=== PATIENT | female | born 2000 | race Caucasian/White ===

== ENCOUNTER 2025-02-26 17:17 | Emergency (ER) | payer BC, SELFPAY ==
--- NOTE | 2025-02-26 17:18 | ED_ITS ---
HPI - URI/Sore Throat General Chief Complaint: Upper Respiratory Infection Stated Complaint: Cold Like Time Seen by Provider: 02/26/25 17:18 Source: patient Mode of arrival: ambulatory Limitations: no limitations History of Present Illness HPI Narrative: Patient is a 24 year old female that presents with congestion, cough and feeling warm for 2 days. patient reports temperature of 99.4. Denies any ear pain, n/v/d . Has taken a dose of sudafed and mucinex. Related Data Home Medications ?Medication ?Instructions ?Recorded ?Confirmed ?Last Taken ?Type escitalopram oxalate 10 mg tablet mg 02/26/25 Unknown History norgestimate-ethinyl estradiol tablet 02/26/25 Unknown History 0.18mg/0.215mg/0.25mg-0.035mg(28)tablet (Tri-Sprintec (28)) Allergies Allergy/AdvReac Type Severity Reaction Status Date / Time No Known Allergies Allergy Verified 02/26/25 17:31 Review of Systems Review of Systems: All systems reviewed & are unremarkable except as noted in HPI and below Constitutional: Constitutional: Denies chills, Denies fatigue, Denies fever(s), Denies headache(s), Denies malaise and Denies weakness Eyes: Eyes: Denies blurry vision, Denies itchy eyes and Denies loss of vision ENT: Denies otalgia, Denies headache(s), Reports nasal congestion, Denies sinus pain and Reports sore throat Cardiovascular: Cardiovascular: Denies chest pain, Denies irregular heart rhythm and Denies dyspnea Respiratory: Respiratory: Denies cough and Denies dyspnea Gastrointestinal: Gastrointestinal: Denies abdominal pain, Denies diarrhea, D enies nausea and Denies vomiting Musculoskeletal: Musculoskeletal: Denies back pain, Denies myalgias and Denies arthralgias Integumentary/Breasts: Skin/Breast: Denies pruritus and Denies rash Neurologic: Denies headache(s), Denies loss of vision and Denies weakness Psychiatric: Psychiatric: Reports no additional psychiatric complaints Endocrine: Endocrine: Denies fatigue Allergic/Immunologic: Allergic/Immunologic: Denies itchy eyes PMFSH Comments At time of signature, agree with nursing past medical, surgical, social and family history. There is no relevant family history pertinent to the presenting complaint. Exam Const: General: cooperative, healthy appearing, comfortable, no acute distress and well nourished Nutritional Appearance: well nourished Orientation/consciousness: patient oriented x3 Limitations: no limitations HENMT: Head: normal to inspection, normocephalic and atraumatic Ears: hearing grossly normal bilaterally, external ears normal, TM's normal bilaterally, EAC's normal and no periauricular adenopathy Face/Nose/Sinus: Normal external nose present, Abnormal mucous membranes and turbinates present erythematous bilateral and diffuse, normal facial exam, sinuses nontender and face symmetric Face and sinus: normal facial exam, sinuses nontender and face symmetric Mouth: Yes Normal oral and palatal mucosa present, Yes lip normal, Yes tongue normal, Yes Normal salivary glands and ducts present, Yes oropharynx normal and Yes moist mucous membranes Teeth and gingiva: dentition normal Throat: posterior oropharynx normal, tonsils normal, uvula midline and postnasal drainage Eyes: General: appearance normal, both eyes and all related structures Alignment and Position: alignment normal and position normal Periorbital: periorbital findings normal Eyelids: eyelids normal Pupils: Equal, round and reactive pupils present Neck: Neck: normal visual inspection, full ROM, no lymphadenopathy and supple Chest: Chest palpation & inspection: normal inspection of the chest and normal palpation of entire chest wall Resp: Effort & Inspection: normal respiratory effort and able to speak in complete sentences Auscultation: clear to auscultation bilaterally, no crackles, no rales, no rhonchi and no wheezes Cardio: Rate: tachycardic Rhythm: regular rhythm Heart sounds: S1 normal heart sound present and S2 normal heart sound present GI: Inspection: normal to inspection Skin: General skin exam: normal color and no rashes or lesions noted Neuro: General: patient oriented x3 and moves all extremities Cranial nerves: Yes Equal, round and reactive pupils present Speech: normal speech Gait exam (Neuro): Normal gait present Extrem: General: normal to inspection, full ROM and no edema Psych: Appearance: grossly normal and well kempt Mental Status: mental status grossly normal Speech and movement: Normal speech and movement present Affect: normal affect Attitude: cooperative Thought process: Normal thought process present Course Course Emergency Course: Discharge instructions reviewed with patient, as well as provided in writing per nursing staff. The instructions also include specific and strict return/GO TO THE ER as well as f/u information. All questions have been answered, and the patient deny any further questions with discharge and discharge plan. Portions of this record may have been created with voice recognition software Level of Care: Express Care Visit Vital Signs Vital signs: Vital Signs Temperature 36.5 C 02/26/25 17:27 Pulse Rate 108 H 02/26/25 17:27 Respiratory Rate 16 02/26/25 17:27 Blood Pressure 129/71 02/26/25 17:27 Pulse Oximetry 99 02/26/25 17:27 Oxygen Delivery Room Air 02/26/25 17:27 Temperature 36.5 C 02/26/25 17:27 Pulse Rate 108 H 02/26/25 17:27 Respiratory Rate 16 02/26/25 17:27 Blood Pressure 129/71 02/26/25 17:27 Pulse Oximetry 99 02/26/25 17:27 Oxygen Delivery Room Air 02/26/25 17:27 Reviewed MDM - URI/Sore Throat MDM Narrative Medical decision making narrative: Pt well hydrated appearing, in no respiratory distress, hemodynamically stable. Recommend supportive care. The patient is stable at time of discharge the clinical impression was discussed and the patient was given the opportunity to ask questions, which were addressed as completely as possible given the information available at present. Anticipatory guidance and return to care precautions were discussed and the importance of primary care follow-up was stressed and encouraged. The patient voiced understanding of the plan, indications to return, and the need for follow-up. Exam findings show no acute concerns or changes Patient is appropriate for outpatient treatment and follow-up. Differential diagnosis considered: Mejia virus, strep pharyngitis, allergic rhinitis, upper respiratory tract infection, sinusitis, rhinosinusitis, nasopharyngitis. viral pharyngitis, otitis media, otitis externa, otitis effusion, foreign body, cerumen impaction, viral syndrome, and influenza.? Lab Data Attestation: I reviewed the patient's lab results. Labs: Lab Results 02/26/25 Range/Units 17:31 POC Influenza A Ag Negative (Negative) POC Influenza B Ag Negative (Negative) POC SARS CoV-2 Ag Negative (Negative) POC Grp A Strep Screen Negative (Negative) Discharge Plan Discharge Clinical Impression: Upper respiratory infection Qualifiers: URI type: acute nasopharyngitis (common cold) Qualified Code(s): J00 - Acute nasopharyngitis [common cold] Patient Disposition: Home Condition: Stable Instructions: Upper Respiratory Infection (ED) Additional Instructions: Your rapid strep swab was negative today at [facility]. A throat culture will be sent to the laboratory for further testing. If the test is positive, you will receive a phone call within 48 hours and an appropriate antibiotic will be initiated at that time. Your Covid and flu are both negative Your symptoms are likely due to a viral illness, which is not treated with antibiotics. Viral symptoms can be present for up to a few weeks. -For pain/fever, you may take: Tylenol 650-1000mg by mouth every 4-6 hours. Do not exceed 4000mg in 24 hours. Advil (Ibuprofen) 600 mg by mouth every 6 hours. Do not exceed 2400mg in 24 hours. 8 AM: Tylenol 11 AM: Ibuprofen 2 PM: Tylenol 5 PM: Ibuprofen 8 PM: Tylenol 11 PM: Ibuprofen 2 AM: Tylenol 5 AM: Ibuprofen -Antihistamine medication such as Benadryl/Zyrtec at night and Claritin/Kassandra during the day can help improve symptoms. -Use Flonase twice a day for 5 days then daily to help reduce the inflammation and dry up your sinuses. -You can also use Sudafed behind the pharmacy counter(12 or 24 hour). Be sure to drink plenty of water with these medications at least 8 ounces with every dose and it is important to drink 8 to 10 glasses of water per day. Water is a natural decongestant -Eat and drink things that are easy to swallow, like tea or soup, or popsicles. -Oral rinses such as: Salt water gargles and/or may use topical anesthetic (eg. Chloraseptic spray) or lozenges to relieve dryness or throat pain). 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 -Using a vaporizer or humidifier at night will also help thin secretions and help with coughing up phlegm. Call your Primary Care Doctor and make a follow-up appointment in 3 days. If your cough worsens, you develop a fever greater than 103, you develop shaking chills, a fast heartbeat, trouble breathing and/or feel you are are breathing much faster than usual, call your Primary Care Doctor or go to the ER. Patient Language: German Prescriptions: New benzonatate 100 mg capsule 100 mg PO BID PRN (Reason: cough) Qty: 14 0RF No Action norgestimate-ethinyl estradiol [Tri-Sprintec (28)] 0.18/0.215/0.25 mg-0.035mg (28) tablet escitalopram oxalate 10 mg tablet Follow-up/Referrals: Milad,NORA Miles [Primary Care Provider] - 3 Days Stand Alone Forms: Work/School Release IP Time of Disposition: 17:49
--- OUTSIDE RECORDS SUMMARY | 2025-02-26 17:24 | XMS_ITS | Clinical Summary ---
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 This disclosure is being madepursuant to the Care Everywhere program and may not contain all information available regarding this patient. Last updated 18.[employer] Allergies No known active allergies Medications * Be aware that medications may not be up to date on this document. Alwaysverify current medications with the patient. norgestim-eth estrad triphasic (TRI-SPRINTEC) tablet Take 1 tablet by mouth once daily Active spironolactone (ALDACTONE) 25 MG tablet Take 25 mg by mouth once daily Active Family History Medical History Relation Name Comments Other - Cardiac Father Asthma Neg Hx Autoimmune Disease Neg Hx Bipolar Disorder Neg Hx Cancer - Breast Neg Hx Cancer - Colon Neg Hx Cancer - Other Neg Hx Cancer - Ovarian Neg Hx Cancer - Pancreatic Neg Hx Cancer - Prostate Neg Hx Depression Neg Hx Eczema Neg Hx Hypertension Neg Hx Migraine Neg Hx Osteoporosis Neg Hx Seizures Neg Hx Sudd. <30 Neg Hx Thyroid Disease Neg Hx Ulcerative Colitis Neg Hx Relation Name Status Comments Father Alive Mother Alive Social History Tobacco Use Types Packs/Day Years Used Date Smoking Tobacco: Never Smokeless Tobacco: Never Tobacco Cessation:Counseling Given: No Alcohol Use Standard Drinks/Week Comments No 0 (1 standard drink = 0.6 oz pur e alcohol) Comments No Sex and Gender Information Value Date Recorded Sex Assigned at Not on file Legal Sex Female 10:36 AM CDT Gender Identity Not on file Sexual Orientation Not on file Last Filed Vital Signs Vital Sign Reading Time Taken Comments Blood Pressure 116/70 02/01/2020 12:31 PM CDT Pulse 98 02/01/2020 12:31 PM CDT Temperature 36.5 C (97.7 F) 02/01/2020 12:31 PM CDT Respiratory Rate 12 02/01/2020 12:31 PM CDT Oxygen Saturation 98% 02/01/2020 12:31 PM CDT Inhaled Oxygen Concentration - - Weight 53.1 kg (117 lb) 02/01/2020 12:31 PM CDT Height 167.6 cm (5' 6) 02/01/2020 12:31 PM CDT Body Mass Index 18.88 02/01/2020 12:31 PM CDT Plan of Treatment Health Maintenance Due Date Last Done Comments HIV SCREENING 2015 HPV VACCINE (1 - 3-dose series) 2015 CHLAMYDIA/GONORRHEA SCREENING 2016 HEPATITIS C SCREENING 03/31/2018 DTAP/TDAP/TD VACCINES (1 - Tdap) 2019 HEPATITIS B VACCINE (1 of 3 - 19+ 3-dose series) 2019 COVID-19 VACCINE (1 - 2023-2 5 season) 2024 DEPRESSION SCREENING 07/24/2024 INFLUENZA VACCINE (#1) 2025 05/30/2019 ZOSTER VACCINE (1 of 2) 2050 HIB VACCINE Aged Out No longer eligi ble based on patient's age to complete this topic MENINGOCOCCAL (Group B) VACC INE SHARED DECISION-MAKING Aged Out No longer eligibl e based on patient's age to complete this topic MENINGOCOCCAL GROUPS A/C/Y/W VACCINE Aged Out No longer eligible b ased on patient's age to complete this topic PNEUMOCOCCAL VACCINE Aged Out No long er eligible based on patient's age to complete this topic Care Teams Ceramic Tile Installation Helper Relationship Specialty Start Date End Date Kirt Kraft MD PCP - General Family Medicine 02/20/17
--- OUTSIDE RECORDS SUMMARY | 2025-02-26 17:24 | XMS_ITS | Clinical Summary ---
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 Gender Identity Not on file Sexual Orientation Not on file Plan of Treatment Health Maintenance Due Date Last Done Comments Hepatitis C Virus (HCV) Screening 2000 TdaP Immunization 2000 Hepatitis B Immunization (1 of 3 - 19+ 3-dose series) 2019 SARS-COV-2 Immunization ( season) 2024 06/21/2021, 10/20/2020, 09/30/2020 Influenza Immunization (#1) 03/24/202503/26, 05/30/2019, 05/16/2018, Additional history exists Respiratory Syncytial Virus (RSV) Immunization (Adult) (1 - 1-dose 75+ series) 2075 Meningococcal Immunization (ACWY) Completed 03/13/2019 Human Papillomavirus (HPV) Immunization Completed 06/17/2019, 03/13/2019, 05/16/2018 Pneumococcal Immunization Combined Aged Out No longer eligible based on patient's age to complete this topic Rotavirus Immunization Aged Out No lo nger eligible based on patient's age to complete this topic
--- OUTSIDE RECORDS SUMMARY | 2025-02-26 17:24 | XMS_ITS | Clinical Summary ---
Author Organization [facility] Address [address] [place] [address] Care Team Providers Care Underground Utility Locator Name Role Phone Ginger Stinson NP Primary Care Provider [phone] Allergies No known active allergies Medications Tri-Sprintec, 28, 0.18/0.215/0.25 mg-35 mcg (28) per tabletIndication s:Acne vulgaris Take 1 tablet by mouth daily 84 tablet 3 4 Active escitalopram (LEXAPRO) 10 mg tabletIndication s:SHARITA (generalized anxiety disorder),Mild episode of recurrent major depressive disorder Take 1 tablet (10 mg total) by mouth daily 30 tablet 1 5 02/29/20 25 Active fluticasone propionate (FLONASE) 50 mcg/actuation nasal sprayIndications :Allergic rhinitis, unspecified seasonality, unspecified trigger Administer 2 sprays into each nostril daily 1 each 5 5 Active cetirizine (ZyrTEC) 10 mg tabletIndication s:Allergic rhinitis, unspecified seasonality, unspecified trigger Take 1 tablet (10 mg total) by mouth daily as needed for allergies 90 tablet 1 5 12/31/19 26 Active Active Problems Problem Noted Date Diagnosed Date Hives 01/21/2025 Assessment & Plan (01/21/2025 3:28 PM CDT): Uncontrolled Continued on Zyrtec, advised can increase to BID dosing Encouraged to keep upcoming appointment with child nutrition assistant Fatigue 01/21/2025 Assessment & Plan (01/21/2025 3:29 PM CDT): New diagnosis Ordered labs Can consider referral to sleep medicine if lab results are unrevealing Allergic rhinitis 12/30/2024 Assessment & Plan (01/21/2025 3:26 PM CDT): Controlled Continued on Zyrtec and Flonase Encouraged to keep upcoming appointment with child nutrition assistant Assessment & Plan (12/30/2024 1:00 PM CDT): Uncontrolled Continued on Zyrtec, started on Flonase Supportive care measures discussed Mild episode of recurrent major depressive disor adan 01/12/2023 Assessment & Plan (01/21/2025 3:26 PM CDT): Controlled Reviewed PHQ-2=0 Continued on Lexapro Advised if suicidal ideation or thoughts of harming self or others, to go to ER and/or call [phone] for assistance, agreed to contract for safety Assessment & Plan (12/30/2024 12:59 PM CDT): Controlled Reviewed PHQ-2=0 Continued on Lexapro Advised if suicidal ideation or thoughts of harming self or others, to go to ER and/or call [phone] for assistance, agreed to contract for safety Assessment & Plan (01/11/2024 5:20 AM CDT): Chronic, stable/controlled on medication Reviewed PHQ-9=6, previously 8 Continued on Lexapro Advised if suicidal ideation or thoughts of harming self or others, to go to ER and/or call [phone] for assistance, agreed to contract for safety Assessment & Plan (06/28/2023 2:26 PM ALMOND BLANCHER HAND): Chronic, improved on medication Reviewed PHQ-9=8 Continued on Lexapro Advised if suicidal ideation or thoughts of harming self or others, to go to ER and/or call [phone] for assistance, agreed to contract for safety Assessment & Plan (05/30/2023 7:39 AM ALMOND BLANCHER HAND): Chronic, stable, uncontrolled on medication, has been off sertraline greater than 24 hours, missed dose Started on Lexapro 10 mg daily Advised if suicidal ideation or thoughts of harming self or others, to go to ER and/or call [phone] for assistance, agreed to contract for safety Assessment & Plan (01/12/2023 9:25 AM CDT): Chronic, uncontrolled, PHQ-9=10, previously 9-continued on sertraline 100 mg daily. Informed if suicidal ideation or thoughts of harming self or others, to go to ER and/or call [phone] for assistance, agreed to contract for safety. Encounter for well woman shara garcia with routine gynecological exam 06/02/2021 Assessment & Plan (06/02/2021 9:51 AM ALMOND BLANCHER HAND): Encouraged monthly breast self exams. On OCP.; Discussed guidelines recommending pap smears for women 21-29 years old every 3 years, annual wellness exam yearly with in-office breast exam and optional pelvic. Normal breast exam 06/02/2021 Assessment & Plan (06/02/2021 9:51 AM ALMOND BLANCHER HAND): Normal in-office breast exam. Cervical cancer screening 06/02/2021 Assessment & Plan (06/02/2021 9:53 AM ALMOND BLANCHER HAND): Pap obtained with reflex to HPV if indicated. Annual physical exam 04/22/2021 Assessment & Plan (01/21/2025 10:46 AM CDT): Reviewed past and current medical history, surgical history, social history, family history, current medications, and allergies. The chart was updated to identify any changes in these areas. Assessment & Plan (01/11/2024 5:19 AM CDT): Reviewed past and current medical history, surgical history, social history, family history, current medications, and allergies. The chart was updated to identify any changes in these areas. A ROS and PE were performed. Medication was refilled. Discussed well woman exam/cervical cancer screening, monthly breast self-exams, and recommended immunizations. Patient will follow-up annually for a physical exam, sooner if needed, Pap due end of this year/early 2024. Assessment & Plan (07/04/2022 8:49 PM ALMOND BLANCHER HAND): Reviewed past and current medical history, surgical history, social history, family history, current medications, and allergies. A ROS and PE were performed. Medication was adjusted. Discussed well woman exam/cervical cancer screening, monthly breast self-exams, and recommended immunizations. Patient will follow-up in 4-8 weeks if no improvement with adjustment in dose of medication, otherwise in 6 months for a routine follow-up visit. Assessment & Plan (04/23/2021 5:59 AM CDT): Reviewed past and current medical history, surgical history, social history, family history, current medications, and allergies. A ROS and PE were performed. Medication adjustment was made. Discussed recommended immunizations and an influenza vaccine was given, still needs an updated Tdap. Patient will follow-up in 3-5 weeks for further evaluation and management or sooner if needed. Need for vaccination 04/22/2021 Assessment & Plan (09/02/2022 4:58 PM ALMOND BLANCHER HAND): Tdap was given. Assessment & Plan (07/04/2022 8:49 PM ALMOND BLANCHER HAND): Recommended Tdap and COVID-19 booster/s. Assessment & Plan (04/23/2021 5:58 AM CDT): Influenza vaccine given. Acne vulgaris 04/22/2021 Assessment & Plan (01/21/2025 3:25 PM CDT): Controlled Continued on OCP Assessment & Plan (01/11/2024 5:20 AM CDT): Chronic, improved on medication Continued on Accutane per Dermatology Assessment & Plan (06/28/2023 2:27 PM ALMOND BLANCHER HAND): Chronic, stable, no improvement seeing yet on OCP, however will be starting Accutane per Dermatology Continued on OCP for acne and high-risk medication Encouraged to follow-up with dermatology as recommended Assessment & Plan (05/30/2023 7:38 AM ALMOND BLANCHER HAND): Chronic, uncontrolled off OCP Restarted OCP, refills sent to pharmacy per patient request Encouraged to keep appointment with geospatial intelligence analyst Assessment & Plan (07/04/2022 8:51 PM ALMOND BLANCHER HAND): Chronic, stable, controlled with medication-continued on spironolactone. Encouraged to follow-up with geospatial intelligence analyst as recommended. Assessment & Plan (04/23/2021 5:56 AM CDT): Chronic, stable, controlled with medications-continued on spironolactone, OCP, and doxycycline and encouraged continued followed with geospatial intelligence analyst. SHARITA (generalized anxiety disorder) 04/22/2021 Assessment & Plan (01/21/2025 3:26 PM CDT): Controlled Continued on Lexapro Assessment & Plan (12/30/2024 12:59 PM CDT): Controlled Continued on Lexapro Assessment & Plan (01/11/2024 5:20 AM CDT): Chronic, controlled on medication Reviewed SHARITA-7=6, previously 7 Continued on Lexapro Assessment & Plan (06/28/2023 2:26 PM ALMOND BLANCHER HAND): Chronic, improved on medication Reviewed SHARITA-7=7 Continued on Lexapro Assessment & Plan (05/30/2023 7:39 AM ALMOND BLANCHER HAND): Chronic, stable, uncontrolled on medication, has been off sertraline greater than 24 hours, missed dose Started on Lexapro 10 mg daily Assessment & Plan (01/12/2023 9:25 AM CDT): Chronic, uncontrolled/slightly worsened, SHARITA-7=13, previously 11-continued on sertraline 100 mg daily and started on buspirone 5 mg twice daily with option to increase to 7.5 mg twice daily after 1 week. Informed if suicidal ideation or thoughts of harming self or others, to go to ER and/or call [phone] for assistance agreed to contract for safety. Assessment & Plan (07/04/2022 8:51 PM ALMOND BLANCHER HAND): Chronic, stable, uncontrolled on medication-increased dose of sertraline from 50 mg to 100 mg daily. Informed suicidal ideation or thoughts of harming self or others, to go to ER and/or call [phone]. Recommended follow-up in 4-8 weeks if symptoms are not improving, otherwise follow-up in 6 months. Assessment & Plan (04/23/2021 5:59 AM CDT): Chronic, stable, uncontrolled on medication-increased sertraline from 25 mg once daily to 50 mg once daily with recommended follow-up in 3-5 weeks. Shortness of breath at rest 05/16/2018 Assessment & Plan (01/21/2025 3:28 PM CDT): Declined trial with albuterol Not interested in imaging/referral at this time Ordered labs to rule out concern for anemia Heat sensitivity 03/24/2018 Assessment & Plan (01/21/2025 3:27 PM CDT): Get hives when she is hot and sweats Encouraged to keep upcoming appointment with child nutrition assistant Resolved Problems Problem Noted Date Diagnosed Date Resolved Date Chronic idiopathic constipation 09/02/2022 01/12/2023 Assessment & Plan (09/02/2022 4:59 PM ALMOND BLANCHER HAND): Chronic, uncontrolled-encouraged to take stool softener once or twice daily and/or MiraLax daily as needed. Instructed to increase fiber in diet for goal of 20-30 g of fiber daily. Right lower quadrant pain 09/02/2022 Assessment & Plan (09/02/2022 4:59 PM ALMOND BLANCHER HAND): Urine and POCT were negative. Ordered ultrasound of pelvis with endovaginal and CBC. Instructed to go to ER for worsening or new symptoms. Dyspepsia 06/02/2021 07/01/2022 Assessment & Plan (06/02/2021 9:59 AM ALMOND BLANCHER HAND): New problem-recommended keeping a food log of offending foods. Advised can try avoidance of dairy or gluten, but did not recommend at the same time. Encouraged to schedule 6-8 week follow-up if symptoms persist. Other screening breast examination 05/13/2021 06/02/2021 Assessment & Plan (05/13/2021 5:32 PM CDT): Performed in office breast exam, normal. Educated on how to perform and encouraged at home monthly breast self exams. Dysmenorrhea 05/13/2021 07/01/2022 Assessment & Plan (05/13/2021 5:31 PM CDT): Chronic, stable, uncontrolled, on control-continued on oral contraceptive, discussed optional referral to abrasive water jet cutter operator for further evaluation and management. Can take Aleve 2 tablets every 12 hours with food for menstrual cramping/pain as needed. Chronic tension-type headach e, not intractable 12/11/2020 01/21/2025 Inappropriate sinus tachycardia 03/24/2020 01/21/2025 Dizziness 12/07/2018 07/01/2022 Assessment & Plan (04/23/2021 5:57 AM CDT): Chronic, episodic, stable, usually occurs when she stands up too quickly, with prior work-up, currently without symptoms-will monitor for increase in frequency or severity of episodes. Assessment & Plan (12/07/2018 3:26 PM CDT): 18yo w/ 1 year history of positional dizziness. Cardiovascular work-up largely unrevealing except for inappropriate tachycardia. -orthostatics performed in office: Supine 113/82 pulse: 87 Standing 117/76 pulse: 83 Standingx2 127/78 pulse: 90 -exam and history are largely unrevealing for any evidence of underlying endocrinopathy or autonomic failure. In addition, orthostatic testing was negative in office today. -autonomics appear reasonably intact with normal vibratory, monofilament, and pupillary response. Reflexes also normal. -adrenal insufficiency is ruled out by a significantly robust response to ACTH stimulation test -in addition, she had no symptomatic improvement with fludrocortisone or metoprolol -uncertain as to the etiology of her symptoms. Will check thyroid and B12 levels for completion, but no evidence of endocrinopathy -would consider formal tilt-table testing and autonomic function testing with neurology evaluation for any potential neuropathy or ELECTRIC TAPE SLITTER involvement if symptoms persist -2nd line treatments for orthostasis would include midodrine and droxidopa. Also counseled on caffeine in the morning and continuing liberal salt and fluid intake Seasonal allergies 05/16/2018 GERD (gastroesophageal reflux disease) 03/24/2018 01/21/2025 Encounters Date Type Department Care Team Description 02/03/2025 Results Follow-Up [facility] at [address] [phone] Ginger Stinson NP CBC with auto differential, Comprehensive metabolic panel, Thyroid Function [place], Hepatitis C antibody 01/21/2025 10:30 AM CDT Office Visit [facility] at [address] [address] Ginger Stinson NP Annual physical exam (Primary Dx); SHARITA (generalized anxiety disorder); Mild episode of recurrent major depressive disorder; Seasonal allergic rhinitis, unspecified trigger; Fatigue, unspecified type; Acne vulgaris; Heat sensitivity; Hives; Shortness of breath at rest; Need for hepatitis C screening test 12/30/2024 10:45 AM CDT Office Visit [facility] at [address] [phone] Ginger Stinson NP Allergic rhinitis, unspecified seasonality, unspecified trigger (Primary Dx); SHARITA (generalized anxiety disorder); Mild episode of recurrent major depressive disorder from Last 3 Months Immunizations Immunization Administration Dates Next Due HPV9 06/17/2019,03/13/2019,05/16/2018 Influenza, Quadrivalent, Spl it, Preservative Free, Intramuscular 06/11/2023,04/22/2021,05/30/2019,05/16 Influenza, Trivalent, Preser vative Free, Intramuscular 09/03/2016 Influenza, Unspecified 05/30/2023(Deferr ed: Patient Refused),05/17/2022 Meningococcal MCV4P (Menactra) 03/13/2019 Tdap 08/31/2022 Surgical History Surgery Date Site/Laterality Comments WISDOM TOOTH EXTRACTION 07/24/2018 - 07/23/2019 Medical History Medical History Date Comments Anxiety No official Dx Chronic tension-type headache, not intractable 0 12/11/2020 GERD (gastroesophageal reflux disease) 8 Family History Medical History Relation Name Comments Hypertension Father Carolina Parkinson White syndrome Father No Known Problems Mother Relation Name Status Comments Father Alive Mother Social History Tobacco Use Types Packs/Day Years Used Date Smoking Tobacco: Never Tobacco Cessation:Counseling Given: Not Answered AUDIT-C Answer Date Recorded Q1: How often do you have a drink containing alc ohol? 2-4 times a month 04/22/2021 Q2: How many drinks containi ng alcohol do you have on a typical day when you are drinking? 3 or 4 04/22/2021 Q3: How often do you have si x or more drinks on one occasion? Never 04/22/2021 PHQ-2 Answer Date Recorded PHQ-2 Total Score (If total score is 3 or more points, staff should administer the PHQ-9) 0 01/21/2025 PHQ-9 Answer Date Recorded PHQ-9 Total Score 6 01/09/2024 Comments Unknown Sex and Gender Information Value Date Recorded Sex Assigned at Not on file Legal Sex Female 3:13 AM ALMOND BLANCHER HAND Gender Identity Not on file Sexual Orientation Not on file Obstetrics History Last Filed Vital Signs Vital Sign Reading Time Taken Comments Blood Pressure 102/62 01/21/2025 10:31 AM CDT Pulse 93 01/21/2025 10:31 AM CDT Temperature 36.6 C (97.8 F) 01/21/2025 10:31 AM CDT Respiratory Rate 18 01/21/2025 10:31 AM CDT Oxygen Saturation 99% 01/21/2025 10:31 AM CDT Inhaled Oxygen Concentration - - Weight 67.1 kg (148 lb) 01/21/2025 10:31 AM CDT Height 166.4 cm (5' 5.5) 01/21/2025 10:31 AM CD T Body Mass Index 24.25 01/21/2025 10:31 AM CDT Plan of Treatment Health Maintenance Due Date Last Done Comments Varicella Vaccines (1 of 2 - 13+ 2-dose series) 2013 Hepatitis B Screening 2018 Covid-19 Vaccine ( season) 2024 06/21/2021, 10/20/2020, 09/30/2020 Cervical Cancer Screening 02/21/2025 06/02/2021 Po stponed from 06/02/2024 (Patient declined, but will receive in the future) Influenza Vaccine (#1) 2025 , 05/17/2022, 04/22/2021, Additional history exists Depression Screening 01/21/2026 01/21/2025, 12/30/2024, 01/09/2024, Additional history exists Regular Well Visit/Exam 18-64 01/21/2026 01/21/2025, 01/09/2024, 07/01/2022, Additional history exists DTaP/Tdap/Td Vaccine (2 - Td or Tdap) 08/31/2032 08/31/2022 HPV Vaccines Completed 06/17/2019, 02/22, 05/16/2018 Chlamydia and Gonorrhea (GC/CT) Screening Discontinued 06/02/2021 Hepatitis C Screening Completed 01/31/2025 Pneumococcal vaccine <65 Aged Out No longer eligible based on patient's age to complete this topic Procedures Procedure Name Priority Date/Time Associated Diagnosis Comments THYROID FUNCTION CASCADE Routine 01/31/2025 8:25 AM CDT Fatigue, unspecified type COMPREHENSIVE METABOLIC PANEL Routine 01/31/2025 8:25 AM CDT Fatigue, unspecified type CBC WITH AUTO DIFFERENTIAL Routine 01/31/2025 8:25 AM CDT Fatigue, unspecified type HEPATITIS C ANTIBODY Routine 01/31/2025 8:25 AM CDT N. GONORRHOEAE/C. TRACHOMATIS AMPLIFICATION Routine 06/02/2021 10:04 AM ALMOND BLANCHER HAND Encounter for well woman exam with routine gynecological exam from Last 3 Months or Most Recently Relevant to Health Maintenance Results * Thyroid Function [place] (01/31/2025 8:25 AM CDT) TSH 1.49 mIU/L [facility] Comment: Reference Range > or = 20 Years 0.40-4.50 Ranges First trimester 0.26-2.66 Second trimester 0.55-2.73 Third trimester 0.43-2.91 Blood 01/31/2025 8:25 AM CDT 01/31/2025 8:26 AM CDT Narrative [facility] - 02/01/2025 6:29 AM CDT FASTING:YES FASTING: YES us Ginger Stinson OFFICE RENTAL CLERK LAB BLOOD ORDERABLES Final Resul t [facility] [address] [place] [address] * (ABNORMAL) CBC with auto differential (01/31/2025 8:25 AM CDT) Pathologist [facility] WBC 9.7 3.8 - 10.8 Thousand/u L [facility] RBC, POC 4.52 3.80 - 5.10 Million/uL [facility] Hgb 13.3 11.7 - 15.5 g/dL [facility] Hct 41.0 35.0 - 45.0 % [facility] MCV 90.7 80.0 - 100.0 fL [facility] MCH 29.4 27.0 - 33.0 pg [facility] MCHC 32.4 32.0 - 36.0 g/dL [facility] Comment: For adults, a slight decrease in the calculated MCHC value (in the range of 30 to 32 g/dL) is most likely not clinically significant; however, it should be interpreted with caution in correlation with other red cell parameters and the patient's clinical condition. Rdw 12.5 11.0 - 15.0 % [facility] Platelets 326 140 - 400 Thousand/u L [facility] MPV 11.5 7.5 - 12.5 fL [facility] Neutrophils, abs 5,432 1,500 - 7,800 cells/uL [facility] Lymphocytes, abs 2,997 850 - 3,900 cells/uL [facility] Monocyte abs 640 200 - 950 cells/uL [facility] Eosinophils, abs 543(H) 15 - 500 cells/uL [facility] Basophils, abs 87 0 - 200 cells/uL [facility] Neutrophils 56 % [facility] Lymphocyte pct 30.9 % [facility] Monocytes 6.6 % [facility] Eosinophils 5.6 % [facility] Basophils 0.9 % [facility] Blood 01/31/2025 8:25 AM CDT 01/31/2025 8:26 AM CDT Narrative [facility] - 02/01/2025 6:29 AM CDT FASTING:YES FASTING: YES Ginger Stinson OFFICE RENTAL CLERK LAB BLOOD ORDERABLES Final Resul t [facility] [address] [facility] [place] [address] * Hepatitis C antibody (01/31/2025 8:25 AM CDT) Hep C Ab NON-REACTI VE NON-REACT LORIN [facility] Comment: HCV antibody was non-reactive. There is no laboratory evidence of HCV infection. In most cases, no further action is required. However, if recent HCV exposure is suspected, a test for HCV RNA (test code 66801) is suggested. For additional information please refer to http://education.[employer]faq/BHF48e7 (This link is being provided for informational/ educational purposes only.) 01/31/2025 8:25 AM CDT 01/31/2025 8:26 AM CDT Narrative [facility] - 02/01/2025 6:29 AM CDT FASTING:YES FASTING: YES Ginger Stinson NP LAB MICROBIOLOGY - GENERAL ORDER SOLOMON Final Result [facility] [address] [place] [address] * Comprehensive metabolic panel (01/31/2025 8:25 AM CDT) Glucose 77 65 - 99 mg/dL [facility] Comment: Fasting reference interval BUN 12 7 - 25 mg/dL [facility] Creatinine 0.67 0.50 - 0.96 mg/dL [facility] eGFR 125 > OR = 60 mL/min/1.7 3m2 [facility] BUN/creat ratio SEE NOTE: 6 - 22 (calc) [facility] Comment: Not Reported: BUN and Creatinine are within reference range. Sodium 138 135 - 146 mmol/L [facility] Potassium, pl 4.1 3.5 - 5.3 mmol/L [facility] Chloride 103 98 - 110 mmol/L [facility] CO2 28 20 - 32 mmol/L [facility] Calcium 9.2 8.6 - 10.2 mg/dL [facility] Protein, sr 6.8 6.1 - 8.1 g/dL [facility] Albumin 4.2 3.6 - 5.1 g/dL [facility] GLOBULIN 2.6 1.9 - 3.7 g/dL (calc) [facility] Alb/glob ratio 1.6 1.0 - 2.5 (calc) [facility] Bilirubin, total 0.4 0.2 - 1.2 mg/dL [facility] Alk phos 74 31 - 125 U/L [facility] AST 16 10 - 30 U/L [facility] ALT (SGPT) 13 6 - 29 U/L [facility] Blood 01/31/2025 8:25 AM CDT 01/31/2025 8:26 AM CDT Narrative [facility] - 02/01/2025 6:29 AM CDT FASTING:YES FASTING: YES us Ginger Stinson NP LAB BLOOD ORDERABLES Final Resul t [facility] [address] [place] [address] * N. gonorrhoeae/C. trachomatis Amplification Urine (06/02/2021 10:04 AM ALMOND BLANCHER HAND) C. trachomatis Not Detected Not Detected FRANCY ALEXIS Comment:Testing performed by : [facility], [address] [place] [address]., [id number] N. gonorrhoeae Not Detected Not Detected FRANCY ALEXIS Comment: Interpretive Data Testing performed by the [facility]. This assay detects Chlamydia trachomatis and Neisseria gonorrhoeae by nucleic acid amplification testing (NAAT). This test is approved by the [place] Food and Drug Administration and the performance characteristics have been verified by the laboratory. The performance characteristics of this test have not been evaluated in individuals less than 14 years of age. Current Interpretive Data was last revised on 2019. Testing performed by: [facility], [address] [place] [address]., [id number] Urine (None) 06/02/2021 10:0 4 AM ALMOND BLANCHER HAND 06/02/2021 11:36 AM ALMOND BLANCHER HAND us Ginger Stinson NP LAB MICROBIOLOGY - GENERAL ORDER SOLOMON Final Result Performing Organization Address City/[facility]/ZIP Co de Phone Number FRANCY [address] [facility] Department [place] [address] from Last 3 Months or Most Recently Relevant to Health Maintenance Insurance Lumiy OOS Lumiy OOS Care Teams Underground Utility Locator Relationship Specialty Start Date End Date Ginger Stinson NP [address] [place] [id number] PCP - General Family Practice 04/22/21
--- OUTSIDE RECORDS SUMMARY | 2025-02-26 17:24 | XMS_ITS | Encounter Summary ---
Author Organization [facility] Healthcare Address [address] [place] [address] Care Team Providers Care Computer Systems Information Director Name Role Phone Ginger Stinson BUTTON SEWER Primary Care Provider [phone] Encounter Details Date Type Department Care Team (Latest Contact Info) Description 02/03/2025 Results Follow-Up [facility] Primary Care at [address] [id number] Ginger Stinson BUTTON SEWER [address] [place] [id number] CBC with auto differential, Comprehensive metabolic panel, Thyroid Function [place], Hepatitis C antibody Social History Tobacco Use Types Packs/Day Years Used Date Smoking Tobacco: Never AUDIT-C Answer Date Recorded Q1: How often [...] on file Legal Sex Female 3:13 AM ETL ANALYST Gender Identity Not on file Sexual Orientation Not on file documented as of this encounter Plan of Treatment Not on file documented as of this encounter Visit Diagnoses Not on filedocumented in this encounter Care Teams Computer Systems Information Director Relationship Specialty Start Date End Date Ginger Stinson, BUTTON SEWER [facility] [address] PCP - General Family Practice 04/22/21 documented as of this encounter
--- OUTSIDE RECORDS SUMMARY | 2025-02-26 17:24 | XMS_ITS | Clinical Summary ---
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 45 g 5 9 Active Norgestimate-Eth inyl Estradiol 0.18/0.215/0.25 MG-35 MCG tablet Take 1 tablet by mouth daily. Active spironolactone 50 MG tablet 50 mg daily. 0 Active doxycycline monohydrate 50 MG capsuleIndicatio ns:Acne vulgaris Take 1 capsule (50 mg total) by mouth daily. 30 capsule 1 Active sertraline 25 MG tabletIndication s:Generalized anxiety disorder,Current moderate episode of major depressive disorder without prior episode (CMS/HCC) Take 1 tablet (25 mg total) by mouth daily. 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 Also counseled on caffeine in the morning and continuing liberal salt and fluid intake Acne 05/16/2018 Overview (06/17/2019): Description: Dr. Madsen Seasonal allergies 05/16/2018 Shortness of breath at rest 05/16/2018 Shortness of breath on exertion 05/16/2018 GERD (gastroesophageal reflux disease) 8 Heat sensitivity 03/24/2018 Resolved Problems Problem Noted Date Diagnosed Date Resolved Date Orthostatic dizziness 09/19/20182019 Hypotension 08/29/2018 03/24/2020 SOB (shortness of breath) 06/13/2018 Lightheaded 06/13/2018 03/24/2020 Screening for lipid disorders 05/16/2018 12/07/2020 Flu vaccine need 05/16/2018 12/07/2020 Encounter for preventive health examination 03/24/2018 12/07/2020 Immunizations Immunization Administration Dates Next Due Fluzone 6 Months+ Quad (0.5 mL Prefilled Syringe) 05/30/2019 HPV GARDASIL 9-VALENT 06/17/2019,03/13/2019,04/24 Influenza Adult (Generic) 05/16/2018 Meningococcal (Menactra) 03/13/2019 PFIZER COVID-19 (ORIGINAL FO RMULATION, PURPLE CAP) mRNA, LNP-S, PF, 30 MCG/0.3 ML DOSE 10/20/2020,09/30/2020 Family History Medical History Relation Comments WPW Father Stent Cardiac Maternal Grandfather No Known Problems Mother Relation Status Comments Father Alive Maternal Grandfather Alive Maternal Grandmother Alive Mother Alive Paternal Grandfather Alive Paternal Grandmother Alive Social History Tobacco Use Types Packs/Day Years Used Date Smoking Tobacco: Never Smokeless Tobacco: Never Tobacco Cessation:Counseling Given: No Comments:Physician will discuss Alcohol Use Standard Drinks/Week Comments No 0 (1 standard drink = 0.6 oz pur e alcohol) PHQ-2 Answer Date Recorded PHQ-2 Score - If the patient scores above 3, please move on to questions 3-9 0 02/08/2021 Comments No Sex and Gender Information Value Date Recorded Sex Assigned at Not on file Legal Sex Female 7:25 PM CDT Gender Identity Not on file Sexual Orientation Not on file Last Filed Vital Signs Vital Sign Reading Time Taken Comments Blood Pressure 102/70 02/08/2021 10:01 AM CDT Pulse 94 02/08/2021 10:01 AM CDT Temperature 35.9 C (96.7 F) 02/08/2021 10:01 AM CDT Respiratory Rate 16 02/08/2021 10:01 AM CDT Oxygen Saturation 99% 02/08/2021 10:01 AM CDT Inhaled Oxygen Concentration - - Weight 51.8 kg (114 lb 3.2 oz) 02/08/2021 10:01 AM CDT Height 167.6 cm (5' 6) 02/08/2021 10:01 AM CDT Body Mass Index 18.43 02/08/2021 10:01 AM CDT Plan of Treatment Health Maintenance Due Date Last Done Comments Cervical Cancer Screening Pa p Smear (Age 21 to 29) Every 3 Years 2000 Cervical Cancer Screening 2000 Hepatitis C 2018 DTaP, Tdap and Td Vaccines ( 1 - Tdap) 2019 Hepatitis B Vaccines (1 of 3 - 19+ 3-dose series) 2019 Annual Physical 06/17/2020 06/17/2019 COVID-19 Vaccine (3 - 2023-2 5 season) 2024 10/20/2020, 09/30/2020 Meningococcal Vaccine Completed 03/13/2019 HPV Vaccines Completed 06/17/2019, 03/13/2019, 05/16/2018 Meningococcal B Vaccine Aged Out No l onger eligible based on patient's age to complete this topic Pneumococcal Vaccine: Pediatrics (0 to 5 Years) and At-Risk Patients (6 to 49 Years) Aged Out No longer eligible b ased on patient's age to complete this topic RSV Immunizations Under 20 Months Aged Out No longer eligible b ased on patient's age to complete this topic [place] [address] [place] [address] Care Teams Mud Plant Operator Relationship Specialty Start Date End Date Elva Perez MD [address] [facility] [address] [place] [id number] PCP - General FAMILY PRACTICE 05/28/18 Naveed Lutz MD [facility] [address] [place] [address] Eligio Activity Therapist CARDIOVASCULAR DISEASE 06/05/18
[2025-02-26 17:27] VITALS: BP 129/71; PULSE 108; RESP 16; TEMP 36.5; O2SAT 99
[2025-02-26 17:50] LABS: EDCOVIDSCREEN Negative (Negative); EDINFLUASCREEN Negative (Negative); EDINFLUBSCREEN Negative (Negative); EDSTREPNEGPOS1 Negative (Negative)
== END 2025-02-26 17:52 | disposition home or self-care (01) ==
PROVIDERS: Emergency Provider Nurse Practitioner Family; PCP Family Medicine
DX: J00 Acute nasopharyngitis [common cold] (principal); Z20.822 Contact with and (suspected) exposure to COVID-19
CPT/HCPCS: 87081; 87426; 87804; 87880; 99203; G0463